=== PATIENT | male | born 1980 | race African-American/Black ===

== ENCOUNTER 2017-03-16 01:53 | Emergency (ER) | payer SELFPAY ==
--- NOTE | 2017-03-16 03:26 | EDPHY ---
H & P HPI/ROS: Buffy Patricio : 82 HPI CHIEF COMPLAINT: "I am tired" HISTORY OF PRESENT ILLNESS: This patient is a 36-year-old male presents emergency room by walking in, states he has been walking from [place] to [place] this evening. He walked all day. He is tired. Patient tells me would like to stay urine rest. He also tells me he has a history of diabetes does not take any medications. And he feels like his blood sugar was getting low on like his blood sugar checked in something to drink. Does admit to being homeless. Past Medical History: No significant medical history except for possible diabetes Past Surgical History: Denies recent surgical history Social History: Homeless, denies drugs alcohol tobacco Family History: Noncontributory ROS REVIEW OF SYSTEMS: A comprehensive 10 point review of systems is otherwise negative aside from elements mentioned in the history of present illness. Exam Constitutional appears well nontoxic triage nursing summary reviewed, vital signs reviewed, awake/alert. Eyes normal conjunctivae and sclera, EOMI, PERRLA. HENT normal inspection, atraumatic, moist mucus membranes, no epistaxis, neck supple/ no meningismus, no raccoon eyes. Respiratory clear to auscultation bilaterally, normal breath sounds, no respiratory distress, no wheezing. Cardiovascular rate normal, regular rhythm, no murmur, no edema, distal pulses normal. Gastrointestinal soft, non-tender, no rebound, no guarding, normal bowel sounds, no distension, no pulsatile mass. Genitourinary no CVA tenderness. Musculoskeletal no midline vertebral tenderness, full range of motion, no calf swelling, no tenderness of extremities, no meningismus, good pulses, neurovascularly intact. Skin pink, warm, & dry, no rash, skin atraumatic. Neurologic awake, alert and oriented x 3, AAOx3, moves all 4 extremities equally, motor intact, sensory intact, CN II-XII intact, normal cerebellar, normal vision, normal speech. Psychiatric normal mood/affect. Heme/Lymph/Immune no lymphadenopathy. Differential Diagnosis: Includes but is not limited to in a particular order homeless, half-way seeking, low blood sugar, dehydration Medical Decision Making: Plan for this patient will check an I-STAT blood sugar , he will be given orange juice to drink. He otherwise appears well. I will allow him to rest here briefly. If blood sugar stable will allow to be discharged. Final Diagnosis: Generalized Weakness Disposition: Home. Source: Patient Allergies/Adverse Reactions: No Known Allergies Allergy (Unverified 03/16/17 03:15) Home Medications: Medication Instructions Recorded NK [No Known Home Meds] 03/16/17 Departure - Departure Disposition: Home, Routine, Self-Care Clinical Impression: Generalized weakness Condition: Good Instructions: Fatigue (ED), Weakness (ED) Referrals: NONE *PRIMARY CARE P,. [Primary Care Provider] - As per Instructions
== END 2017-03-16 02:19 | disposition home or self-care (01) ==
DX: R53.1 Weakness (principal)